=== PATIENT | female | born 1995 | race Two or more races ===

== ENCOUNTER → 2025-04-29 | Outpatient (CLI) | payer OTHER, MEDICAID, SELFPAY ==
--- NOTE | 2025-04-29 10:32 | XR_ITS ---
Examination: Duplex scan of the lower extremity, unilateral right Date and time of exam: April 29, 2025, 10:41 a.m. INDICATIONS: Right leg swelling and pain beginning 1 week ago Technique: Duplex scan of the extremity veins using B-mode/grayscale imaging and Doppler spectral analysis and color flow Attention is directed to internal echogenicity, compression and augmentation involving these veins, color flow assessment, spectral analysis Findings: Major deep venous structures in the extremity demonstrate normal course and caliber. There are subtle internal echoes although no definite deep vein thrombus Normal color flow and spectral analysis Rouleaux flow appearance Impression: Probably benign findings, recommend repeat venous Doppler study right leg in 3 to 4 days
== END | disposition home or self-care (01) ==
PROVIDERS: Referring Provider Physician Assistant Medical; Visit Provider Physician Assistant Medical
DX: R60.0 Localized edema (principal)
CPT/HCPCS: 93971

== ENCOUNTER → 2025-05-02 | Outpatient (CLI) | payer OTHER, MEDICAID, SELFPAY ==
--- NOTE | 2025-05-02 08:34 | XR_ITS ---
Examination: Duplex scan of the lower extremity, unilateral right Date and time of exam: May 02, 2025, 0910 hours INDICATIONS: Right calf swelling and beginning 1 month ago Technique: Duplex scan of the extremity veins using B-mode/grayscale imaging and Doppler spectral analysis and color flow Attention is directed to internal echogenicity, compression and augmentation involving these veins, color flow assessment, spectral analysis Findings: Major deep venous structures in the extremity demonstrate normal course and caliber. There is no evidence of deep vein thrombosis. Normal color flow and spectral analysis Impression: Negative for DVT..
== END | disposition home or self-care (01) ==
LOC: CDIM 08:27
PROVIDERS: Referring Provider Physician Assistant Medical; Visit Provider Physician Assistant Medical
DX: R60.0 Localized edema (principal)
CPT/HCPCS: 93971

== ENCOUNTER 2025-05-07 17:32 | Inpatient (IN) | payer OTHER, MEDICAID, SELFPAY ==
[2025-05-07] VITALS (84 sets, daily range): BP systolic 0–135; BP diastolic 0–83; PULSE 109–133; RESP 17–100; TEMP 37.2–38.2; O2SAT 90–100; BMI 37.1
[2025-05-07] MEDS: ACETAMINOPHEN IVPB 1,000 MG/100 ML VIAL 250 MG IV (18:24)
[2025-05-07] MEDS: RINGERS LACTATED 1000 ML 1,000 ML 999 ML IV (18:24)
[2025-05-07 18:48] LABS: Basophils # (Auto) 0.0 Thou/mm3 (0.0-0.2); Basophils % (Auto) 0 % (0-2.5); Eosinophils # (Auto) 0.0 Thou/mm3 (0.0-0.5); Eosinophils % (Auto) 1 % (0-10); Hematocrit 35.8 % (36.0-46.0); Hemoglobin 12.2 g/dL (12.0-16.0); Immature Granulocytes Auto 0.03 Thou/mm3 (0.00-0.00); Lymphocytes # (Auto) 0.2 Thou/mm3 (1.0-4.8); Lymphocytes % (Auto) 3 % (10-50); Mean Corpuscular HGB Conc 34.1 g/dl (31.0-37.0); Mean Corpuscular Hemoglobin 28.3 pg (25.0-35.0); Mean Corpuscular Volume 83 fL (80-100); Monocytes # (Auto) 0.5 Thou/mm3 (0.0-0.8); Monocytes % (Auto) 8 % (0-12); Neutrophils # (Auto) 5.5 Thou/mm3 (1.8-7.7); Neutrophils % (Auto) 88 % (37-80); Nucleated Red Blood Cell # 0.00 Thou/mm3 (0.00-0.00); Nucleated Red Blood Cell % 0 /100 WBC (0); Platelet Count 155 Thou/mm3 (140-440); RDW Standard Deviation 39.9 fL (36.4-46.3); Red Blood Count 4.31 Miln/mm3 (4.00-5.20); White Blood Count 6.3 Thou/mm3 (3.6-11.0)
--- NOTE | 2025-05-07 18:48 | PD.LDANTE ---
Documentation for date of: 05/07/25 OB Labor/Induct. HPI History of Present Illness : 1 Para: 0 Term pregnancies: 0 pregnancies: 0 Living children: 0 History of Abortions: Spontaneous and Elective: 0 History of Vaginal deliveries: 0 History of sections: No History of : No SHARON: 05/21/25 History of present illness: H and P dictated on STAT line #9 in [employer]: [id number] History of Present Adequate Care: Yes Past Medical History Surgical History SURGICAL: Negative Section Meds Home Medications and Allergies Allergies Allergy/AdvReac Type Severity Reaction Status Date / Time No Known Allergies Allergy Verified 05/07/25 17:45 OB Exam Physical Exam Vital signs: Temp Pulse Resp BP Pulse Ox 99.2 F 115 H 19 135/82 H 98 05/07/25 18:01 05/07/25 17:49 05/07/25 17:49 05/07/25 17:49 05/07/25 18:46 OB Results Labs 05/07/25 18:15 05/07/25 18:30
[2025-05-07 19:07] LABS: Influenza A Ag Positive; Influenza B Ag Negative
[2025-05-07 19:07] LABS: Alanine Aminotransferase 15 U/L (10-49); Albumin, Serum 4.3 gm/dL (3.5-5.0); Albumin/Globulin Ratio 1.4 (1.2-2.2); Alkaline Phosphatase 131 U/L (46-116); Anion Gap 13 (7-16); Aspartate Amino Transferase 27 U/L (0-34); BUN/Creatinine Ratio 11 Ratio (12-20); Bilirubin,Total 0.4 mg/dL (0.3-1.2); Blood Urea Nitrogen 9 mg/dL (9-23); COVID-19 Antigen (In-House) Negative (Negative); Calcium 9.3 mg/dL (8.3-10.6); Calcium (Corrected) 9.3 mg/dL (8.5-10.1); Carbon Dioxide 20.3 mMol/L (20.0-31.0); Chloride 103 mMol/L (98-107); Creatinine (Component) 0.8 mg/dL (0.6-1.3); Estimated Creatinine Clearance 119.1 mL/min (>60); Globulin 3.0 gm/dL (2.3-3.5); Glucose 88 mg/dL (74-106); Osmolality,Calculated 269 (275-295); Potassium 4.2 mMol/L (3.4-5.1); Sodium 136 mMol/L (136-145); Total Protein 7.3 gm/dL (5.7-8.2); eGFR > 60 See Note
--- NOTE | 2025-05-07 19:12 | ESHP_ITS ---
RE: CARLOS SQUIRES : 1995 DATE OF ADMISSION: 05/07/2025 HISTORY OF PRESENT ILLNESS: This is a 29-year-old 1, para 0 with due date of 05/21 with intrauterine at 38 weeks and 0 days who presents to labor and delivery complaining of fever, joint pains and muscle aches. She reports normal movement. She denies any leaking or bleeding. She reports occasional contractions. She denies any flank pain or dysuria. She denies any sore throat, cough, chest pain, shortness of breath, headaches, stiff neck, nausea, vomiting, or abdominal or pelvic pain. She denies any diarrhea. She denies any other family with similar illness at home. ALLERGIES: NO KNOWN DRUG ALLERGIES. MEDICATIONS: 1. multivitamin 1 p.o. daily. 2. Omeprazole 20 mg 1 p.o. daily. PAST MEDICAL HISTORY: Gastroesophageal reflux disease. PAST SURGICAL HISTORY: Shoulder surgery in 2011. SOCIAL HISTORY: She denies any alcohol, drug use, or smoking. FAMILY HISTORY: Paternal grandmother, breast cancer. Maternal grandmother, migraine headache and diabetes. Mother with hypertension, heart disease, and obesity. REVIEW OF SYSTEMS: As above. PHYSICAL EXAMINATION: VITAL SIGNS: Temperature is 99.2. Heart rate is 115. Respiration rate is 19. Blood pressure is 135/82. Pulse ox is 100% on room air. HEENT: Oropharynx and sclerae are clear. LUNGS: Clear to auscultation bilaterally. HEART: Tachycardic, but regular rhythm. ABDOMEN: Gravid consistent with 38 weeks gestation, nontender fundus, positive movement. EXTREMITIES: Nontender. SKIN: No gross rashes or lesions. NEUROLOGIC: No focal deficits. ASSESSMENT: Intrauterine at 38 weeks, febrile illness. Suspect influenza. PLAN: Workup and evaluation to determine cause of febrile illness. IV hydration. Prolonged monitoring. DT: 18:48:24 TT: 19:12:00 Ref: [id number] - TID: [id number] [facility]
--- NOTE | 2025-05-07 19:29 | EKG_ITS ---
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
[2025-05-07 19:58] LABS: Collection Type, Urine Clean Catch
[2025-05-07 20:10] LABS: Lactate (Lactic Acid) 1.6 mMol/L (0.4-2.0)
[2025-05-07 20:14] LABS: Bacteria,Urine 3+; Bilirubin,Urine Negative (Negative); Blood,Urine Negative (Negative); Clarity,Urine Clear (Clear/Hazy); Color,Urine Yellow (Lt Yel-Yel); Glucose, Urine Negative (Negative); Ketones,Urine 1+ (Negative); Leukocyte Esterase,Urine Negative (Negative); Nitrite,Urine Negative (Negative); PH,Urine 6.0 (5.0-7.0); Protein,Urine 1+ (Neg - Trace); RBC,Urine 4 /hpf (0-3); Specific Gravity,Urine 1.030 (1.001-1.035); Squamous Epithelial Cell,Urine 2 /hpf (0-5); Urobilinogen,Urine Negative mg/dL (0.0-1.0); WBC,Urine 2 /hpf (0-5)
[2025-05-07 20:15] LABS: Culture Indicated,Urine Yes
[2025-05-07] MEDS: OSELTAMIVIR 75 MG CAPSULE PO (21:11)
[2025-05-07] MEDS: cefTRIAXone/D5w 1gm IV premix 1 GM/50 ML BAG IV (22:35)
[2025-05-07] MEDS: ONDANSETRON INJ 2 MG/ML INJ 2 ML 4 MG IVP (23:02)
[2025-05-08] VITALS (274 sets, daily range): BP systolic 0–138; BP diastolic 0–83; PULSE 78–227; RESP 16–19; TEMP 36.9–39.1; O2SAT 45–100
[2025-05-08] MEDS: ACETAMINOPHEN IVPB 1,000 MG/100 ML VIAL 250 MG IV ×4 (00:03→19:55)
[2025-05-08] MEDS: RINGERS LACTATED 1000 ML 1,000 ML 125 ML IV ×3 (02:45→17:35)
[2025-05-08] MEDS: ONDANSETRON INJ 2 MG/ML INJ 2 ML 4 MG IVP ×3 (05:33→19:43)
--- NOTE | 2025-05-08 07:13 | ESPR_ITS ---
RE: CARLOS SQUIRES : 1995 DATE OF SERVICE: 05/08/2025 SUBJECTIVE: Patient reports stuffy nose and cough. She denies any chest pain or difficulty breathing. She denies any sore throat. She denies any flank pain. She reports muscle aches. She reports occasional contractions. She denies any leaking or bleeding. She reports normal movements. On history of the present illness, the patient does indicate that her mother came home with fever a couple days ago and then her got sick and then she got sick. OBJECTIVE: VITAL SIGNS: Temperature is 99.6. T-max is 100.7. Heart rate 116. Respiration rate 16. Blood pressure 138/83. HEENT: Oropharynx and sclerae clear. LUNGS: Clear to auscultation bilaterally. HEART: Tachycardic, but regular rhythm. ABDOMEN: Nontender. EXTREMITIES: Nontender. LABORATORY DATA: White blood cell count is 6.3. Hemoglobin is 12.2. Lactic acid 1.6. Urine shows 3+ bacteria, 4 red blood cells per high-power field. Nasal swab shows positive for influenza A, negative for influenza B, and COVID. Urine culture, blood culture pending. ASSESSMENT: 1. Intrauterine at 38 weeks. 2. Influenza. 3. Urinary tract infection. PLAN: Due to the episodes of tachycardia, the patient will require continued inpatient observation with Tamiflu and Rocephin. I discussed with the patient the management plan. All questions answered. DT: 06:28:31 TT: 07:11:00 Ref: [id number] - TID: [id number] [facility]
[2025-05-08] MEDS: cefTRIAXone/D5w 1gm IV premix 1 GM/50 ML BAG IV ×2 (09:56→20:17)
[2025-05-08] MEDS: OSELTAMIVIR 75 MG CAPSULE PO ×2 (09:59→20:17)
[2025-05-09] VITALS (83 sets, daily range): BP systolic 113–126; BP diastolic 70–72; PULSE 68–100; RESP 17–20; TEMP 36.6–37; O2SAT 86–100
[2025-05-09] MEDS: RINGERS LACTATED 1000 ML 1,000 ML 125 ML IV (01:13)
[2025-05-09 05:38] LABS: Basophils # (Auto) 0.0 Thou/mm3 (0.0-0.2); Basophils % (Auto) 0 % (0-2.5); Eosinophils # (Auto) 0.0 Thou/mm3 (0.0-0.5); Eosinophils % (Auto) 1 % (0-10); Hematocrit 30.7 % (36.0-46.0); Hemoglobin 10.1 g/dL (12.0-16.0); Immature Granulocytes Auto 0.02 Thou/mm3 (0.00-0.00); Lymphocytes # (Auto) 0.6 Thou/mm3 (1.0-4.8); Lymphocytes % (Auto) 20 % (10-50); Mean Corpuscular HGB Conc 32.9 g/dl (31.0-37.0); Mean Corpuscular Hemoglobin 27.7 pg (25.0-35.0); Mean Corpuscular Volume 84 fL (80-100); Monocytes # (Auto) 0.4 Thou/mm3 (0.0-0.8); Monocytes % (Auto) 12 % (0-12); Neutrophils # (Auto) 2.0 Thou/mm3 (1.8-7.7); Neutrophils % (Auto) 67 % (37-80); Nucleated Red Blood Cell # 0.00 Thou/mm3 (0.00-0.00); Nucleated Red Blood Cell % 0 /100 WBC (0); Platelet Count 115 Thou/mm3 (140-440); RDW Standard Deviation 41.9 fL (36.4-46.3); Red Blood Count 3.64 Miln/mm3 (4.00-5.20); White Blood Count 3.0 Thou/mm3 (3.6-11.0)
--- NOTE | 2025-05-09 06:09 | ESDS_ITS ---
DS: Providers Provider Date of admission: 05/08/25 18:49 Primary care physician: Physician No Primary/Family Admitting Provider: Aung Alaniz MD Attending Provider on Admission: Aung Alaniz MD Attending Provider on DC: Aung Alaniz MD Discharging Provider: Aung Alaniz MD DS: Diagnosis Discharge Diagnosis (1) Influenza A: Status: Acute Problem List Completed Was Problem List Reviewed/Reconciled?: Yes Summary/Hosp Course Brief History: 29 year old 38 weeks came in with fever and body aches. Work up confirmed Influenza A. Received Tamiflu and Rocephin for UTI 05/07 to 05/09. Became afebrile. Dischaged on 05/09. Time Spent with Patient Time attestation: Total time spent providing and/or coordinating discharge services: Time spent: Greater than 30 minutes Exam Vital Signs Temp Pulse Resp BP Pulse Ox O2 Del Method 98.5 F 80 19 126/71 98 Room Air 05/09/25 05:24 05/09/25 05:24 05/09/25 05:24 05/09/25 05:24 05/09/25 06:05 05/08/25 19:15 Routine Respiratory Exam Comments: CTA B/L Routine Cardiovascular Exam Comments: RRR Routine Abdominal Exam Comments: Gravid , nontender Routine Extremities Exam Comments: Nontender or edema. Routine Skin Exam Comments: No rashes or lesions Discharge Plan Plan Patient Disposition: HOME (Self Care) Patient condition on transfer: Stable Prescriptions/Referrals Prescriptions/Med Rec: New oseltamivir 75 mg capsule 75 mg PO BID 5 Days Qty: 10 0RF cefuroxime axetil 500 mg tablet 500 mg PO Q12H Qty: 10 0RF ondansetron 4 mg tablet,disintegrating 4 mg PO Q8H PRN (Reason: nausea and vomiting) Qty: 20 0RF Referrals: No Primary/Family,Physician [Primary Care Provider] Patient/Caregiver Discharge Instructions Discharge Activity: activity as tolerated Other Discharge Activity Instructions:: follow up office Jose Maria. Print Language: Italian Stand Alone Forms: [place] Award Info., Patient Portal Info Letter, Work/Release Restrictions Discharge Order Discharge Orders: Discharge (Routine); Ordered 05/09/25 Ordered By: Aung Alaniz Planned Discharge Date 05/09/25
== END 2025-05-09 08:00 | disposition home or self-care (01) | DRG 833 ==
PROVIDERS: Admitting Provider Specialist; Visit Provider Specialist
DX: O99.513 Diseases of the respiratory system complicating pregnancy, third trimester (principal); O23.43 Unspecified infection of urinary tract in pregnancy, third trimester; J10.1 Influenza due to other identified influenza virus with other respiratory manifestations; Z3A.38 38 weeks gestation of pregnancy; O76 Abnormality in fetal heart rate and rhythm complicating labor and delivery
CPT/HCPCS: 36415; 59025; 59899; 80053; 81001; 83605; 85025; 86850; 86900; 86901; 87040; 87086; 87502; 87811; 93005; 94762; J0131; J0696; J2405; J7120; A9270